=== PATIENT | female | born 1940 | race Caucasian/White ===

== ENCOUNTER 2023-09-24 13:12 | Outpatient (AMB) | payer MEDICARE, SELFPAY ==
--- NOTE | 2023-09-24 13:25 | MHC.OFFVIS ---
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 Required: No Allergies levofloxacin Allergy (Intermediate, Verified 09/24/23 13:42) Joint Pain Penicillins Allergy (Mild, Verified 09/24/23 13:42) Headache Medication List - Last Reconciled 09/24/23 by Jonna Bobby MD acetaminophen-caffeine 500-65 mg (Excedrin Tension Headache) 1 tab PO Q6H PRN aspirin 81 mg PO DAILY bupropion HCl 75 mg PO DAILY calcium carbonate-vitamin D3 600 mg-12.5 mcg (500 unit) (Calcium 600 with Vitamin D3) caps PO carbidopa-levodopa 25-100 mg 1 tab PO QID clonazepam 0.5 mg PO DAILY denosumab (Prolia) 60 mg subcut [id number] duloxetine (Cymbalta) 30 mg PO DAILY magnesium gluconate 54 mg PO DAILY magnesium oxide 400 mg PO DAILY mvi, adult no.1, vit K, 1 of 2 (M.V.I. Adult (Vial 1)) mL IV polyethylene glycol 3350 (Miralax) 17 grams PO DAILY vitamins A,C,X-mvsj-dcboje 2,148 mcg-113 mg-45 mg-17.4mg (PreserVision AREDS) 2 tabs PO BID HPI HPI Comments History of Present Illness Details 82y/o female comes for further management of Parkinsonism vs parkinsons disease. SHe was diagnosed with parkinsons about 1 ago when she was in [place].she was referred to the neurologist by her psychiatrist .she is not sure of her symptoms.she denies tremors but feels some slowing of movements and had gait issues. she had the AMADOU scan and was started on carbidopa/levodopa . when she moved here about 1 year ago - she saw who did not think she had parkinsons and her medicines were stopped. she did not notice any worsening.she was admitted at [facility] about 1 week ago and she was restarted on sinemet and she is not sure why. she denies tremors. Her balance is poor. Her speech is ok sometimes she feels her words dont come out right No memory issues. No REM behavior disorder she has constipation worse since sinemet. she has mild double vision and blurred vision.she has multiple falls even with a walker- she is mostly in wheel chair SHe has difficulty using fork and knife she has depression and anxiety life long. No exposure to antipsychotics. she was diagnosed with NPH few years ago and was evaluated for shunt by LP but her gait did not improve so she did not have a shunt. she has urinary urgency [facility] Medical History (Updated 09/24/23 @ 14:53 by Jonna Bobby MD) Gait disturbance Parkinson's disease without dyskinesia or fluctuating manifestations NPH (normal pressure hydrocephalus) Neuropathy TIA (transient ischemic attack) GERD (gastroesophageal reflux disease) Arthritis Anxiety Depression History of breast implant removal Surgical History History of appendectomy Hx of tonsillectomy Hx of spinal fusion History of back surgery Family History Mother No problems noted. Father No problems noted. Social History Household Members: None Housing: Assisted Living Facility Alcohol intake: former Tobacco use type: Cigarette Cigarette Packs Per Day: 2 Years Smoked: 10 year quit in 1982 Physical Exam Vital Signs: Last Vital Signs Pulse 68 09/24/23 13:34 Resp 16 09/24/23 13:34 BP 128/82 09/24/23 13:34 Pulse Ox 97 09/24/23 13:34 Oxygen Delivery Method Room Air 09/24/23 13:34 Const General: cooperative, healthy appearing, comfortable and no acute distress Nutritional Appearance: average body habitus Orientation/consciousness: patient oriented x3 Eyes Pupils: Equal, round and reactive pupils present Neuro Other: unable to walk - she declined to walk - feels unstable No tremors Mild bradykinesia L>R FFM and foot taps decreased L>R manda end gaze horizontal nystagmus General: patient oriented x3, tone normal, moves all extremities, no focal motor deficits and Unable to assess gait Cranial nerves: Yes Facial sensation intact/muscles of mastication intact, Yes Equal, round and reactive pupils present, Yes Bilaterally intact EOM present, Yes Normal facial strength present, Yes Midline tongue present, Yes Symmetric palate elevation present and Yes Ability to bilaterally elevate shoulders present Cognition (Neuro): normal cognition Gait exam (Neuro): Unable to assess gait Motor exam (neuro): 5/5 motor strength present throughout and Normal motor muscle tone present throughout Deep tendon reflexes (DTR's): Right triceps reflex intensity grade: 1+, Left triceps reflex intensity grade: 1+, Rt Biceps (C5, C6): 1+, Left biceps reflex intensity grade: 1+, Right brachioradialis reflex intensity grade: 1+, Left brachioradialis reflex intensity grade: 1+, Right patellar reflex intensity grade: 3+ and Left patellar reflex intensity grade: 3+ Coordination: atopkz-me-[id number] test normal Assessment & Plan Assessment & Plan (1) Parkinson's disease without dyskinesia or fluctuating manifestations: Code(s): G20.A1 - Parkinson's disease without dyskinesia, without mention of fluctuations (2) Gait disturbance: Comment: spinal stenosis ? NPH Code(s): R26.9 - Unspecified abnormalities of gait and mobility Plan Continue carbidopa/levodopa qid Reports form [place] for review I will evaluate her with MRI brain Orders: Orders MR head/brain wo con Today R26.9 - Unspecified abnormalities of gait and mobility Coding Level of Care Code New Pt Level 4 (14290) Diagnoses Parkinson's disease without dyskinesia or fluctuating manifestations G20.A1 Gait disturbance R26.9
[2023-09-24 13:34] VITALS: BP 128/82; PULSE 68; RESP 16; O2SAT 97
== END 2023-09-24 14:22 | disposition home or self-care (01) ==
PROVIDERS: PCP Physician Assistant; Visit Provider Psychiatry & Neurology Neurology
DX: G20.A1 Parkinson's disease without dyskinesia, without mention of fluctuations (principal); R26.9 Unspecified abnormalities of gait and mobility
CPT/HCPCS: 99204

== ENCOUNTER → 2023-09-24 13:12 | Outpatient (BNVA) | payer MEDICARE, SELFPAY | PROVIDERS: PCP Physician Assistant; Visit Provider Psychiatry & Neurology Neurology | DX: G20.A1 Parkinson's disease without dyskinesia, without mention of fluctuations (principal); R26.9 Unspecified abnormalities of gait and mobility; Z79.899 Other long term (current) drug therapy | CPT/HCPCS: 99202 ==

== ENCOUNTER 2023-10-30 10:28 | Outpatient (REF) | payer MEDICARE, SELFPAY | END 2023-10-30 10:29 | disposition home or self-care (01) | LOC: HO.MRI 10:28 | PROVIDERS: Visit Provider Psychiatry & Neurology Neurology | DX: Z13.89 Encounter for screening for other disorder (principal) ==

== ENCOUNTER 2023-12-03 10:03 | Outpatient (REF) | payer MEDICARE, SELFPAY ==
--- NOTE | ~2023-12-03 | MR_ITS ---
EXAMINATION: MR BRAIN WITHOUT CONTRAST CLINICAL INFORMATION: 83-year-old with self-reported full body weakness and extremity numbness, gait disorder. COMPARISON: None available. TECHNIQUE: MRI of the brain was obtained using routine sequences without contrast. FINDINGS: Brain Volume: There is prjitqxm-ck-gjadfk generalized diffuse supratentorial brain parenchymal volume loss. There is moderate volume loss involving the midbrain and mild cerebellar volume loss. Structural: No malformations. Brain and Meninges: DWI sequence demonstrates no restricted diffusion to suggest acute or subacute cerebral ischemia. There are patchy and confluent regions of FLAIR/T2 signal hyperintensity within the deeper and periventricular white matter of both cerebral hemispheres likely reflecting chronic ischemic microangiopathy in a patient of this age. Patchy zones of FLAIR/T2 signal hyperintensity are seen within the lisbeth on both sides of the midline consistent with chronic ischemic microangiopathy. Gradient refocused imaging demonstrates no abnormal susceptibility-weighted signal loss to suggest hemorrhage, hemosiderin staining or abnormal mineralization. No extra-axial fluid collections, space-occupying process or mass effect are identified. Ventricles and Subarachnoid Spaces: There is third and lateral ventriculomegaly, likely reflecting volume loss. Correlate clinically to exclude NPH. Orbital Structures: The visualized orbital structures are grossly unremarkable within the limitations of the study. Vascular: Signal voids are noted in the visualized major intracranial vessels. Osseous Structures, Sinuses/Mastoids, Extracranial Soft Tissues: Bone marrow signal intensity appears grossly within normal limits. There is cervical spondylosis at C4-C5 and C3-C4 with mild degrees of anterior subluxation of C2-C3 and C4-C5 with disc osteophyte complex indenting the ventral aspect of the spinal cord at C4-C5. There are degenerative changes at the anterior atlantodental joint with mild degenerative retrodental ligamentous thickening. There is minor mucosal thickening in the ethmoid complex and left maxillary sinus. MR/MR head/brain wo con IMPRESSION: 1. Findings consistent with chronic ischemic microangiopathy in the white matter of both cerebral hemispheres and within the lisbeth with no evidence for acute or subacute cerebral ischemia, hemorrhage, extra-axial fluid collection, space-occupying process or mass effect. 2. Third and lateral ventriculomegaly likely reflecting volume loss. Correlate clinically to exclude NPH. 3. Upper cervical degenerative changes with disc osteophyte complex indenting the ventral aspect of the spinal cord at C4-C5.
== END 2023-12-03 10:04 | disposition home or self-care (01) ==
LOC: HO.MRI 10:03
PROVIDERS: Visit Provider Psychiatry & Neurology Neurology
DX: R26.9 Unspecified abnormalities of gait and mobility (principal)
CPT/HCPCS: 70551

== ENCOUNTER 2023-12-31 11:07 | Outpatient (AMB) | payer MEDICARE, SELFPAY ==
--- NOTE | 2023-12-31 11:08 | A.OFFVIS_ITS ---
Vital Signs 12/31/23 11:09 Height 4 ft 9.5 in Weight 105 lb BMI 22.3 BP 138/82 Blood Pressure Location Lt brachial Position Sitting Respiration 16 Pulse 73 Pulse Source Pulse Oximeter Pulse Oximetry (%) 96 Oxygen Delivery Method Room Air Intake Visit Reasons: 3m follow up - Confirmed Intake Note: Pt presents to the office for a 3 month follow up for gait disturbance. Shoeshiner Required: No Allergies levofloxacin Allergy (Intermediate, Verified 12/31/23 11:14) Joint Pain Penicillins Allergy (Mild, Verified 12/31/23 11:14) Headache Medication List - Last Reconciled 12/31/23 by Jonna Bobby MD acetaminophen-caffeine 500-65 mg (Excedrin Tension Headache) 1 tab PO Q6H PRN aspirin 81 mg PO DAILY bupropion HCl 75 mg PO DAILY calcium carbonate-vitamin D3 600 mg-12.5 mcg (500 unit) (Calcium 600 with Vitamin D3) caps PO carbidopa-levodopa 25-100 mg 1 tab PO QID clonazepam 0.5 mg PO DAILY denosumab (Prolia) 60 mg subcut [id number] duloxetine (Cymbalta) 30 mg PO DAILY magnesium gluconate 54 mg PO DAILY magnesium oxide 400 mg PO DAILY mvi, adult no.1, vit K, 1 of 2 (M.V.I. Adult (Vial 1)) mL IV polyethylene glycol 3350 (Miralax) 17 grams PO DAILY vitamins A,C,E-rcko-rwuegh 2,148 mcg-113 mg-45 mg-17.4mg (PreserVision AREDS) 2 tabs PO BID HPI Comments Details: 82y/o female comes for follow up of Parkinsonism vs parkinsons disease. CT brain - . Third and lateral ventriculomegaly likely reflecting volume loss. Correlate clinically to exclude NPH. 3. Upper cervical degenerative changes with disc osteophyte complex indenting the ventral aspect of the spinal cord at C4-C5. Previous history-SHe was diagnosed with parkinsons about 1 ago when she was in [place].she was referred to the neurologist by her psychiatrist .she is not sure of her symptoms.she denies tremors but feels some slowing of movements and had gait issues. she had the AMADOU scan and was started on carbidopa/levodopa . when she moved here about 1 year ago - she saw who did not think she had parkinsons and her medicines were stopped. she did not notice any worsening.she was admitted at [facility] about 1 week ago and she was restarted on sinemet and she is not sure why. she denies tremors. Her balance is poor. Her speech is ok sometimes she feels her words dont come out right No memory issues. No REM behavior disorder she has constipation worse since sinemet. she has mild double vision and blurred vision.she has multiple falls even with a walker- she is mostly in wheel chair SHe has difficulty using fork and knife she has depression and anxiety life long. No exposure to antipsychotics. she was diagnosed with NPH few years ago and was evaluated for shunt by LP but her gait did not improve so she did not have a shunt. she has urinary urgency [facility] Medical History (Updated 12/31/23 @ 11:39 by Jonna Bobby MD) Gait disturbance Parkinson's disease without dyskinesia or fluctuating manifestations NPH (normal pressure hydrocephalus) Neuropathy TIA (transient ischemic attack) GERD (gastroesophageal reflux disease) Arthritis Anxiety Depression History of breast implant removal Surgical History History of appendectomy Hx of tonsillectomy Hx of spinal fusion History of back surgery Family History Mother No problems noted. Father No problems noted. Social History Household Members: None Housing: Assisted Living Facility Alcohol intake: former Tobacco use type: Cigarette Cigarette Packs Per Day: 2 Years Smoked: 10 year quit in 1982 Physical Exam Vital Signs: Last Vital Signs Pulse 73 12/31/23 11:09 Resp 16 12/31/23 11:09 BP 138/82 12/31/23 11:09 Pulse Ox 96 12/31/23 11:09 Oxygen Delivery Method Room Air 12/31/23 11:09 BMI result Body Mass Index 22.3 Const General: cooperative, healthy appearing, comfortable and no acute distress Nutritional Appearance: average body habitus Orientation/consciousness: patient oriented x3 Eyes Pupils: Equal, round and reactive pupils present Neuro Other: unable to walk - she declined to walk - feels unstable No tremors Mild bradykinesia L>R FFM and foot taps decreased L>R Mild decreased upgaze Normal speech General: patient oriented x3, tone normal, moves all extremities, no focal motor deficits and Unable to assess gait Cranial nerves: Yes Facial sensation intact/muscles of mastication intact, Yes Equal, round and reactive pupils present, Yes Bilaterally intact EOM present, Yes Normal facial strength present, Yes Midline tongue present, Yes Symmetric palate elevation present and Yes Ability to bilaterally elevate shoulders present Cognition (Neuro): normal cognition Gait exam (Neuro): Unable to assess gait Motor exam (neuro): 5/5 motor strength present throughout and Normal motor muscle tone present throughout Deep tendon reflexes (DTR's): Right triceps reflex intensity grade: 1+, Left triceps reflex intensity grade: 1+, Rt Biceps (C5, C6): 1+, Left biceps reflex intensity grade: 1+, Right brachioradialis reflex intensity grade: 1+, Left brachioradialis reflex intensity grade: 1+, Right patellar reflex intensity grade: 3+ and Left patellar reflex intensity grade: 3+ Coordination: [id number]-ic-[id number] test normal Results Reviewed Results Reviewed: Ct brain -Findings consistent with chronic ischemic microangiopathy in the white matter of both cerebral hemispheres and within the lisbeth with no evidence for acute or subacute cerebral ischemia, hemorrhage, extra-axial fluid collection, space-occupying process or mass effect. 2. Third and lateral ventriculomegaly likely reflecting volume loss. Correlate clinically to exclude NPH. 3. Upper cervical degenerative changes with disc osteophyte complex indenting the ventral aspect of the spinal cord at C4-C5. Assessment & Plan Assessment & Plan (1) Gait disturbance: Comment: spinal stenosis ? Parkinsonism Code(s): R26.9 - Unspecified abnormalities of gait and mobility Category: Medical (2) Parkinson's disease without dyskinesia or fluctuating manifestations: Code(s): G20.A1 - Parkinson's disease without dyskinesia, without mention of fluctuations Category: Medical (3) Neuropathy: Code(s): G62.9 - Polyneuropathy, unspecified Category: Medical Plan Continue carbidopa/levodopa 25/100 qid MRI C spine to evaluate for spinal stenosis Reviewed MRI brain results Orders: Orders MR cervical spine wo con Today M48.02 - Spinal stenosis, cervical region Coding Level of Care Code Est Pt Level 4 (58847) Diagnoses Gait disturbance R26.9 Parkinson's disease without dyskinesia or fluctuating manifestations G20.A1 Neuropathy G62.9
[2023-12-31 11:09] VITALS: BP 138/82; PULSE 73; RESP 16; O2SAT 96; BMI 22.3
== END 2023-12-31 11:51 | disposition home or self-care (01) ==
PROVIDERS: PCP Physician Assistant; Visit Provider Psychiatry & Neurology Neurology
DX: R26.9 Unspecified abnormalities of gait and mobility (principal); G20.A1 Parkinson's disease without dyskinesia, without mention of fluctuations; G62.9 Polyneuropathy, unspecified
CPT/HCPCS: 99214

== ENCOUNTER → 2023-12-31 11:07 | Outpatient (BNVA) | payer MEDICARE, SELFPAY | PROVIDERS: PCP Physician Assistant; Visit Provider Psychiatry & Neurology Neurology | DX: G20.A1 Parkinson's disease without dyskinesia, without mention of fluctuations (principal); R26.9 Unspecified abnormalities of gait and mobility; G62.9 Polyneuropathy, unspecified | CPT/HCPCS: 99212 ==

== ENCOUNTER 2024-02-09 12:34 | Outpatient (REF) | payer MEDICARE, SELFPAY ==
--- NOTE | ~2024-02-09 | MR_ITS ---
EXAMINATION: MR CERVICAL SPINE WITHOUT CONTRAST CLINICAL INFORMATION: Spinal stenosis, cervical region COMPARISON: None available. TECHNIQUE: MRI of the cervical spine was obtained using routine sequences without contrast. FINDINGS: The visualized posterior fossa is unremarkable. Reversal of the normal cervical lordosis. Grade 1 anterolisthesis at C2-C3, C3-C4, C4-C5, C7-T1, and T1-T2. No acute bone marrow abnormality. Probable atypical intraosseous hemangioma at C5 posteriorly. The vertebral body heights are preserved. Multilevel disc desiccation and disc height loss, worse and severe at C5-C6 and C6-C7. Mixed type I and II endplate changes predominantly at C5-C6 and C6-C7. The visualized spinal cord is normal in caliber. No abnormal cord signal. C2-C3: Disc osteophyte complex and bilateral facet arthrosis. Mild right neural foraminal narrowing. No significant spinal canal stenosis. C3-C4: Disc osteophyte complex and bilateral facet arthrosis. No significant spinal canal or neural foraminal narrowing. C4-C5: Disc osteophyte complex, left greater than right neural foraminal narrowing, ligamentum flavum hypertrophy, and bilateral facet arthrosis. Minimal spinal canal stenosis. Moderate left neural foraminal narrowing. C5-C6: Disc osteophyte complex and left greater than right uncovertebral hypertrophy. Severe left and mild right neural foraminal narrowing. No significant spinal canal stenosis. C6-C7: Disc osteophyte complex, bilateral uncovertebral hypertrophy, ligamentum flavum hypertrophy, and bilateral facet arthrosis. Mild to moderate bilateral neural foraminal narrowing. No significant spinal canal stenosis. C7-T1: Bilateral uncovertebral hypertrophy and facet arthrosis. No significant spinal canal stenosis. Mild right greater than left neural foraminal narrowing. The paravertebral soft tissues are unremarkable. The visualized lung apices are clear. MR/MR cervical spine wo con IMPRESSION: Multilevel cervical spondylosis without significant cord compression, or abnormal cord signal. There is minimal spinal canal stenosis at C4-C5. Neural foraminal narrowing is worst and severe on the left at C5-C6.
== END 2024-02-09 12:35 | disposition home or self-care (01) ==
LOC: HO.MRI 12:34
PROVIDERS: PCP Physician Assistant; Visit Provider Psychiatry & Neurology Neurology
DX: M48.02 Spinal stenosis, cervical region (principal)
CPT/HCPCS: 72141

== ENCOUNTER 2025-03-20 11:22 | Outpatient (AMB) | payer MEDICARE, SELFPAY ==
--- NOTE | 2025-03-20 11:27 | MHC.OFFVIS ---
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 she was started on PT recently. she is in an senior living facility. Her dose was increased to carbidopa/levodopa 25/100 1 1/2 tabs qid . she used to have frequent falls - she feels it decreased with increase in dose. she falls usually when she is transferring. she is not walking much she did PT but did not help. she lost her sister 3mths ago and has been depressed since then.she is on duloxetine 60mg CT brain - . Third and lateral ventriculomegaly likely reflecting volume loss. Correlate clinically to exclude NPH. 3. Upper cervical degenerative changes with disc osteophyte complex indenting the ventral aspect of the spinal cord at C4-C5. Previous history-SHe was diagnosed with parkinsons about 1 ago when she was in [place].she was referred to the neurologist by her psychiatrist .she is not sure of her symptoms.she denies tremors but feels some slowing of movements and had gait issues. she had the AMADOU scan and was started on carbidopa/levodopa . when she moved here about 1 year ago - she saw who did not think she had parkinsons and her medicines were stopped. she did not notice any worsening.she was admitted at [facility] about 1 week ago and she was restarted on sinemet and she is not sure why. she denies tremors. Her balance is poor. Her speech is ok sometimes she feels her words dont come out right No memory issues. No REM behavior disorder she has constipation worse since sinemet. she has mild double vision and blurred vision.she has multiple falls even with a walker- she is mostly in wheel chair SHe has difficulty using fork and knife she has depression and anxiety life long. No exposure to antipsychotics. she was diagnosed with NPH few years ago and was evaluated for shunt by LP but her gait did not improve so she did not have a shunt. she has urinary urgency [facility] Medical History Gait disturbance Parkinson's disease without dyskinesia or fluctuating manifestations NPH (normal pressure hydrocephalus) Neuropathy TIA (transient ischemic attack) GERD (gastroesophageal reflux disease) Arthritis Anxiety Depression Surgical History History of breast implant removal History of appendectomy Hx of tonsillectomy Hx of spinal fusion History of back surgery Family History Mother No problems noted. Father No problems noted. Social History Household Members: None Housing: Assisted Living Facility Alcohol intake: former Tobacco use type: Cigarette Cigarette Packs Per Day: 2 Years Smoked: 10 year quit in 1982 Physical Exam Vital Signs: Last Vital Signs Pulse 78 03/20/25 11:37 BP 100/72 03/20/25 11:37 Pulse Ox 99 03/20/25 11:37 Oxygen Delivery Method Room Air 03/20/25 11:37 Const General: cooperative, healthy appearing, comfortable and no acute distress Nutritional Appearance: average body habitus Orientation/consciousness: patient oriented x3 Eyes Pupils: Equal, round and reactive pupils present Neuro Other: unable to walk - she declined to walk - feels unstable No tremors Mild bradykinesia L>R FFM and foot taps decreased L>R Mild decreased upgaze Normal speech General: patient oriented x3, tone normal, moves all extremities, no focal motor deficits and Unable to assess gait Cranial nerves: Yes Facial sensation intact/muscles of mastication intact, Yes Equal, round and reactive pupils present, Yes Bilaterally intact EOM present, Yes Normal facial strength present, Yes Midline tongue present, Yes Symmetric palate elevation present and Yes Ability to bilaterally elevate shoulders present Cognition (Neuro): normal cognition Gait exam (Neuro): Unable to assess gait Motor exam (neuro): 5/5 motor strength present throughout and Normal motor muscle tone present throughout Coordination: [id number] test normal Assessment & Plan Assessment & Plan (1) Gait disturbance: Comment: Parkinsonism Code(s): R26.9 - Unspecified abnormalities of gait and mobility Category: Medical (2) Parkinson's disease without dyskinesia or fluctuating manifestations: Comment: ? PSP Code(s): G20.A1 - Parkinson's disease without dyskinesia, without mention of fluctuations Category: Medical (3) Neuropathy: Code(s): G62.9 - Polyneuropathy, unspecified Category: Medical Plan continue carbidopa/levodopa 25/100 - 1 1/2 tabs qid Continue exercise she may benefit from counseling for her mood. Coding Level of Care Code Est Pt Level 4 (84397) Complex EM visit Add On G2211 Diagnoses Gait disturbance R26.9 Parkinson's disease without dyskinesia or fluctuating manifestations G20.A1 Neuropathy G62.9
[2025-03-20 11:37] VITALS: BP 100/72; PULSE 78; O2SAT 99
--- OUTSIDE RECORDS SUMMARY | 2025-03-20 12:38 | XMS_ITS | Clinical Summary ---
Author Organization [address] [facility] Address [address] [place] [address] Phone Care Team Providers Care Applications Systems Analyst Name Role Phone Ron Morris MD Primary Care Provider [phone] Encounters Date Type Department Care Team Description 01/31/2025 Lab Requisition [facility] [address] [place] [address] Ron Morris MD Weakness 01/30/2025 Lab Requisition [facility] [address] [place] [address] Ron Morris MD Chronic fatigue, unspecified; Other specified cough from Last 3 Months Social History Tobacco Use Types Packs/Day Years Used Date Smoking Tobacco: Never Assessed Comments Unknown Sex and Gender Information Value Date Recorded Sex Assigned at Not on file Legal Sex Female 8:41 PM EST Gender Identity Not on file Sexual Orientation Not on file Plan of Treatment Health Maintenance Due Date Last Done Comments DTaP,Tdap,and Td Vaccines (1 - Tdap) 1961 Pneumococcal Vaccine: 50+ Ye ars (1 of 1 - PCV) 1992 Zoster Vaccines (1 of 2) 1992 RSV Immunization Adult Patie nts (1 - 1-dose 75+ series) 2017 Falls Risk Assessment 09/18/2023 Medicare Annual Wellness Visit 09/18/2023 Osteoporosis Screening (Bone Density Screening) 09/18/2023 Social Influencers of Health Screening 09/18/2023 COVID-19 Vaccine ( - 2023-2 5 season) 2024 Depression Screening 08/24/2024 Influenza Vaccine (#1) 2025 HIB Vaccines Aged Out No longer eligi ble based on patient's age to complete this topic HPV Vaccines Aged Out No longer eligi ble based on patient's age to complete this topic Hepatitis A Vaccines Aged Out No long er eligible based on patient's age to complete this topic Hepatitis B Vaccines Aged Out No long er eligible based on patient's age to complete this topic IPV Vaccines Aged Out No longer eligi ble based on patient's age to complete this topic MMR Vaccines Aged Out No longer eligi ble based on patient's age to complete this topic Meningococcal ACWY Vaccine Aged Out N o longer eligible based on patient's age to complete this topic Meningococcal B Vaccine Aged Out No l onger eligible based on patient's age to complete this topic RSV Immunization Patients Un genesis 20 months Aged Out No longer eligible b ased on patient's age to complete this topic Varicella Vaccines Aged Out No longer eligible based on patient's age to complete this topic Procedures Procedure Name Priority Date/Time Associated Diagnosis Comments BASIC METABOLIC PANEL Routine 01/31/2025 8:23 AM EDT Weakness COMPLETE BLOOD COUNT Routine 01/31/2025 8:23 AM EDT Weakness [id number], RSV, FLU A AND B QUALITATIVE RT-PCR, LOCAL REFERENCE LAB Routine 01/30/2025 1:50 PM EDT Chronic fatigue, unspecified Other specified cough from Last 3 Months Results * (ABNORMAL) Complete blood count (01/31/2025 8:23 AM EDT) WBC 8.2 4.8 - 10.8 K/mcL LAB HEMETOLOGY METHOD 01/31/2025 11:47 AM EDT [facility] RBC 4.00 3.80 - 4.80 M/mcL LAB HEMETOLOGY METHOD 01/31/2025 11:47 AM EDT [facility] Hemoglobin 12.5 11.5 - 16.0 g/dL LAB HEMETOLOGY METHOD 01/31/2025 11:47 AM EDT [facility] Hematocrit 40.0 35.0 - 47.0 % LAB HEMETOLOGY METHOD 01/31/2025 11:47 AM EDT [facility] MCV 99.5(H) 79.0 - 98.0 FL LAB HEMETOLOGY METHOD 01/31/2025 11:47 AM EDT [facility] MCH 31.1 27.0 - 32.0 pcg LAB HEMETOLOGY METHOD 01/31/2025 11:47 AM EDT [facility] MCHC 31.3(L) 32.0 - 37.0 g/dL LAB HEMETOLOGY METHOD 01/31/2025 11:47 AM EDT [facility] RDW 13.2 11.0 - 15.0 % LAB HEMETOLOGY METHOD 01/31/2025 11:47 AM EDT [facility] Platelets 377 130 - 400 K/mcL LAB HEMETOLOGY METHOD 01/31/2025 11:47 AM EDT [facility] MPV 8.7 7.0 - 11.0 FL LAB HEMETOLOGY METHOD 01/31/2025 11:47 AM EDT [facility] NRBC 0.0 <1.0 % LAB HEMETOLOGY METHOD 01/31/2025 11:47 AM EDT [facility] NRBC Absolute 0.00 <0.10 K/mcL LAB HEMETOLOGY METHOD 01/31/2025 11:47 AM T [facility] Blood Venous blood specimen / Unknown Venipuncture / Unknown 01/31/2025 8:23 AM EDT 01/31/2025 10:38 AM EDT us Ron Morris MD LAB BLOOD ORDERABLES Final Resul t [facility] [address] [place] [address], * (ABNORMAL) Basic metabolic panel (01/31/2025 8:23 AM EDT) Pathologist [facility] Sodium 141 133 - 145 mmol/L LAB CHEMISTRY METHOD 01/31/2025 12:03 PM [facility] Potassium 4.4 3.5 - 5.5 mmol/L LAB CHEMISTRY METHOD 01/31/2025 12:03 PM [facility] Chloride 106 96 - 110 mmol/L LAB CHEMISTRY METHOD 01/31/2025 12:03 PM [facility] CO2 29 21 - 32 mmol/L LAB CHEMISTRY METHOD 01/31/2025 12:03 PM [facility] Anion Gap 6 3 - 11 LAB CHEMISTRY METHOD 01/31/2025 12:03 PM [facility] Glucose 74 70 - 100 mg/dL LAB CHEMISTRY METHOD 01/31/2025 12:03 PM [facility] BUN 10 5 - 25 mg/dL LAB CHEMISTRY METHOD 01/31/2025 12:03 PM [facility] Creatinine 0.69 0.50 - 1.10 mg/dL LAB CHEMISTRY METHOD 01/31/2025 12:03 PM [facility] eGFR 87 >=60 mL/min/1. 73m2 LAB CHEMISTRY METHOD 01/31/2025 12:03 PM [facility] Comment:Calculation based on the Chronic Kidney Disease Epidemiology Collaboration (CKD-EPI) equation refit without adjustment for race. BUN/Creatinine Ratio 14.5 LAB CHEMISTRY METHOD 01/31/2025 12:03 PM [facility] Calcium 8.0(L) 8.5 - 10.5 mg/dL LAB CHEMISTRY METHOD 01/31/2025 12:03 PM [facility] Blood Venous blood specimen / Unknown Venipuncture / Unknown 01/31/2025 8:23 AM EDT 01/31/2025 10:38 AM EDT us Ron Morris MD LAB BLOOD ORDERABLES Final Resul t [facility] [address] [place] [address], * [id number], RSV, Influenza A and B qualitative RT-PCR (01/30/2025 1:50 PM EDT) SARS COV-2 Not Detected Not Detected LAB MOLECULAR DIAGNOSTICS METHOD 01/31/2025 7:55 AM EDT [facility] Comment: Disclaimer: The manner in which this information is used to guide patient care is the responsibility of the healthcare provider. Testing was performed using the [employer] Alinity m SARS-CoV-2 test. This test has been authorized by FDA under an Emergency Use Authorization (EUA). This test is only authorized for the duration of time the declaration that circumstances exist justifying the authorization of the emergency use of in vitro diagnostic tests for detection of SARS-CoV-2 virus and/or diagnosis of COVID-19 infection under section 564(b)(1) of the Act, 21 U.S.C. 360bbb- 3(b)(1), unless the authorization is terminated or revoked sooner. Fact sheet for Healthcare Providers can be found at: https://www.fda.gov/media/240320/download Fact sheet for Patients can be found at: https://www.fda.gov/media/369667/download Influenza A PCR Not Detected Not Detected LAB MOLECULAR DIAGNOSTICS METHOD 01/31/2025 7:55 AM EDT [facility] Influenza B PCR Not Detected Not Detected LAB MOLECULAR DIAGNOSTICS METHOD 01/31/2025 7:55 AM EDT [facility] RSV PCR Not Detected Not Detected LAB MOLECULAR DIAGNOSTICS METHOD 01/31/2025 7:55 AM EDT [facility] Swab Nasopharyngeal structure / Unknown 01/30/2025 1:50 PM EDT 01/30/2025 4:11 PM EDT Ron Morris MD LAB MICROBIOLOGY - GENERAL ORDER ROSY Final Result [facility] [address] [facility] [place] [address], [place] [phone] from Last 3 Months Insurance [facility] MEDICARE Care Teams Applications Systems Analyst Relationship Specialty Start Date End Date Ron Morris MD [address] [place] [address], [id number] PCP - General Family Medicine 11/11/24
--- OUTSIDE RECORDS SUMMARY | 2025-03-20 12:39 | XMS_ITS ---
Author Name [facility] Organization Unknown History of Medication Use Medication Directions Dispensed Refills Start Date End Date Stat us DULoxetine (CYMBALTA) 20 MG delayed release capsule 20 mg daily. 11/24/2021 active ibuprofen (MOTRIN) 400 mg tablet Take 1.5 tablets by mouth every 6 hours as needed for Pain. 10/08/2020 active clonazePAM (KLONOPIN) 0.5 MG tablet Take 0.25 mg by mouth 2 times daily. 11/19/2015 active Advair Diskus 500 mcg-50 mcg/dose powder for inhalation Advair Diskus 500 mcg-50 mcg/dose powder for inhalation 2 completed albuterol sulfate 2.5 mg/3 mL (0.083 %) solution for nebulization USE 1 TREATMENT (VIAL) EVERY 4-6 HOURS- AT LEAST 4 TREATMENTS A DAY USE 1 TREATMENT (VIAL) EVERY 4-6 HOURS- AT LEAST 4 TREATMENTS A DAY 2 completed aripiprazole 1 mg/mL oral solution TAKE 2ML BY MOUTH EVERY DAY TAKE 2ML BY MOUTH EVERY DAY 2 completed lansoprazole 30 mg capsule,delayed release TAKE 1 CAPSULE BY MOUTH EVERY DAY TAKE 1 CAPSULE BY MOUTH EVERY DAY 2 completed Lotemax 0.5 % eye ointment APPLY SMALL AMOUNT TO AFFECTED EYE 1-2 TIMES PER DAY FOR ITCHING APPLY SMALL AMOUNT TO AFFECTED EYE 1-2 TIMES PER DAY FOR ITCHING 2 completed mirtazapine 7.5 mg tablet mirtazapine 7.5 mg tablet 2 completed neomycin 3.5 mg/g-polymyxin B 10,000 unit/g-dexameth 0.1 % eye oint APPLY TO RIGHT UPPER EYELID FOUR TIMES DAILY FOR 7 DAYS THEN ONCE DAILY FOR 7 DAYS THEN STOP APPLY TO RIGHT UPPER EYELID FOUR TIMES DAILY FOR 7 DAYS THEN ONCE DAILY FOR 7 DAYS THEN STOP [address] [facility] with Large Mask USE DIRECTED USE DIRECTED 2 completed mirtazapine 30 mg tablet mirtazapine 30 mg tablet 0 completed Advair Diskus 100 mcg-50 mcg/dose powder for inhalation INHALE 1 PUFF BY MOUTH TWICE DAILY INHALE 1 PUFF BY MOUTH TWICE DAILY completed Calcium Carbonate-Vit D-Min (CALCIUM 1200 PO) Take 2,400 mg by mouth daily. active Cholecalciferol (VITAMIN D) 25 MCG (1000 UT) TABS Take 1,000 Units by mouth daily. active clonazepam 0.5 mg tablet TAKE 1/2 TABLET BY MOUTH TWICE DAILY NEEDED FOR ANXIETY TAKE DIRECTED NEEDED FOR ANXIETY TAKE 1/2 TABLET BY MOUTH TWICE DAILY NEEDED FOR ANXIETY TAKE DIRECTED NEEDED FOR ANXIETY completed duloxetine 20 mg capsule,delayed release TAKE 1 CAPSULE BY MOUTH EVERY NIGHT TAKE 1 CAPSULE EVERY MORNING TAKE 1 CAPSULE BY MOUTH EVERY NIGHT TAKE 1 CAPSULE EVERY MORNING completed Multiple Vitamin (MULTIVITAMIN ADULT PO) Take 1 tablet by mouth daily. active polyethylene glycol (MIRALAX) 17 g packet Take 17 g by mouth daily. active Allergies Allergen Reaction Severity Comment Documented Date Source Statu s NUTS 07/28/2022 [facility] active CASHEWS ANAPHYLAXIS Severe 10/03/2020 [facility] active SCALLOPS NAUSEA AND VOMITING Severe 05/18/2019 [facility] I active LEVOFLOXACIN Severe pain 07/06/2017 [facility] active PENICILLINS RASH Moderate 01/24/2016 [facility] active LEVAQUIN E[facility] Problems Problem Status Onset Date Problem Type Date of Resolution Source Osteoporosis, post-menopausal active 2019-11-04 ProblemAct [facility] Parkinson's disease active 2022-04-24 ProblemAct [facility] PAD (peripheral artery disease) active 2020-01-23 ProblemAct [facility] Degenerative joint disease of both hips active 2019-08-24 ProblemAct [facility] Vitamin D deficiency, unspecified active 2019-11-04 ProblemAct [facility] Cluster C personality disorder active 2022-07-28 ProblemAct [facility] Cervical disc disorder at C4-C5 level with radiculopathy active 2022-07-28 ProblemAct [facility] Major depression, chronic active 2022-07-28 ProblemAct [facility] Moderate persistent asthma without complication active 2019-11-04 ProblemAct [facility] History of asthma active 2022-01-22 ProblemAct [facility] Chronic daily headache active 2022-07-28 ProblemAct [facility] Parkinsonism active 2022-07-28 ProblemAct [facility] Cervicalgia active 2016-01-24 ProblemAct [facility] Hypocalcemia active 2019-11-04 ProblemAct [facility] Dyslipidemia, goal LDL below 100 active 2022-07-28 ProblemAct [facility] Pulmonary nodules active EncounterDiagnosisAct [facility] Former smoker, stopped smoking many years ago active 1981-08-24 ProblemAct [facility] Carpal tunnel syndrome, bilateral active 2020-04-24 ProblemAct [facility] I Cerebral atrophy active 2018-03-19 ProblemAct U [facility] Abnormal brain MRI active 2022-07-28 ProblemAct [facility] Lung nodule, solitary active 2016-04-14 ProblemAct [facility] Adjustment disorder with depressed mood active 2022-07-28 ProblemAct [facility] I Immunizations Vaccine Date Source Lot Number Status influenza, injectable, quadrivalent 06/04/2021 E[facility]_PAPA completed Assessment and Plan ID Update Date Source Alert Text [facility]-[id number] 06/18/2022 [place] [employer] COVID Vaccination: This patient has received the PFR, COV-19,mRNA,LNP-S,PF,30-0.3,Biv alent vaccination on 06/18/2022 with lot number [id number] [id number] [place] [employer]-[id number] 08/05/2021 [place] [employer] COVID Vaccination: This patient has received the PFR, COVID-19, mRNA, LNP-S, PF, 0.3mL vaccination on 08/05/2021 with lot number [id number] at [facility] [place] [facility]. [place] [employer]-[id number] 11/25/2020 [place] [employer] COVID Vaccination: This patient has received the PFR, COVID-19, mRNA, LNP-S, PF, 0.3mL vaccination on 11/25/2020 with lot number [id number] at [facility] [address] [facility] [address] [place] [employer]-[id number] 10/28/2020 [place] [employer] COVID Vaccination: This patient has received the PFR, COVID-19, mRNA, LNP-S, PF, 0.3mL vaccination on 10/28/2020 with lot number [id number] at [facility] [id number] [address] Health Concerns ID Update Date Source Alert Text 10/24/2022 [facility] Care Alert Professionals Involved in Care: TOP COLLAR BASTER Primary Care Outpatient Case Management Team Patient Date last reviewed: 01/14/22 This Care Alert was last updated by a care seal delivery vehicle team technician on 01/14/2022, however the update date is reflective of a CRISP QA process on 10/23/2022. Encounters Encounter Type Encounter Reason Primary Diagnosis Location Date Ambulatory [facility] 10/03/2022 Ambulatory [facility] 09/30/2022 [facility]22 Ambulatory [phone] CALL CONFIRMED [facility] 09[facility]26/2022 [facility] 09/19/2022 Ambulatory [facility] 09/19/2022 Ambulatory [facility] 09[facility]18/2022 Ambulatory [facility] 09/12/2022 Ambulatory [facility] 09[facility]10/2022 Ambulatory [facility] 09[facility]09/2022 Ambulatory [facility] 09/05/2022 Ambulatory [facility] 09/05/2022 Ambulatory [phone] CALL [facility] 09/05/2022 Ambulatory [facility] 09/03/2022 Ambulatory [facility] 09/01/2022 Ambulatory [facility] 08/27/2022 Ambulatory Other nonspecifi c abnormal finding of lung field [facility] 08/26/2022 Ambulatory [facility] 08/15/2022 Ambulatory [facility] 08/07/2022 Ambulatory F[facility]U. [facility] 08/04/2022 [facility]ulatory [facility] 08/04/2022 Ambulatory [facility] 07/29/2022 Ambulatory [facility] 07/28/2022 Ambulatory [facility] 07/28/2022 Ambulatory [facility] 07/21/2022 Ambulatory [facility] 07/14/2022 Ambulatory [facility] 07/14/2022 Amb[facility] 07/14/2022 Ambulatory [facility] 07/04/2022 Ambulatory [facility]U. [facility] 07/04/2022 Ambulatory [facility] 06/26/2022 Ambulatory [facility] 06/17/2022 Ambulatory [facility] 05/30/2022 Ambulatory [facility] 05/29/2022 Ambulatory [facility] 05/28/2022 Ambulatory [facility] 05/23/2022 Ambulatory [facility] 05/21/2022 Ambulatory [facility] 05/13/2022 Ambulatory [facility] 05/08/2022 Ambulatory [facility] 05/06/2022 Ambulatory [facility] 05/05/2022 Ambulatory [phone] CALL [facility] 05/05/2022 Ambulatory [facility] 04/24/2022 Ambulatory [facility] 04/21/2022 Ambulatory [facility] 04/11/2022 Ambulatory [facility] 04/03/2022 Ambulatory [facility] 04/03/2022 Ambulatory [phone] CALL [facility] 03/24/2022 Ambulatory [facility] 03/24/2022 Ambulatory [phone] [facility]22 Ambulatory [facility] 03/18/2022 Ambulatory [facility] 03/14/2022 Ambulatory [facility] 03[facility]12/2022 Ambulatory [facility] 03/05/2022 Ambulatory [facility] 03/05/2022 Ambulatory CALL [phone] LINE BUSY [facility] 03/05/2022 Ambulatory [facility] 02/19/2022 Ambulatory [facility] 02/17/2022 Emergency Fall [facility] 02/13/2022 Ambulatory [facility] 02/13/2022 Ambulatory CALL [phone] CONFIR [facility] 01/30/2022 Ambulatory [facility] 01/29/2022 Ambulatory [facility] 01/21/2022 Ambulatory [facility] 01/08/2022 Ambulatory [facility] 01/06/2022 Ambulatory [facility] 01/06/2022 Ambulatory [facility] 01/03/2022 Ambulatory [facility] 12/23/2021 Ambulatory [facility] 12/23/2021 Ambulatory CALL [phone] CONFIRMED [facility] 12/23/2021 Ambulatory TRANSCRIBED [facility] 12/19/2021 Ambulatory [facility] 12/16/2021 Ambulatory [facility] 12/05/2021 Ambulatory [facility] 12/02/2021 Ambulatory [facility] 12/02/2021 Ambulatory [facility] 11/25/2021 Ambulatory CALL [phone] CONFIRMED [facility] 11/25/2021 Ambulatory F[facility]U. [facility] 11/18/2021 Ambulatory [facility] 11/18/2021 Ambulatory [facility] 10/30/2021 Ambulatory [facility] 09/27/2021 Ambulatory CALL [phone] CONFIRMED [facility] 09/27/2021 Ambulatory [facility] 09/25/2021 Ambulatory [facility] 09/18/2021 Ambulatory [facility] 09/17/2021 Ambulatory [facility] 08/28/2021 Ambulatory CALL [phone] CONFIRMED [facility] 08/28/2021 Ambulatory AUDIO [facility] 08/06/2021 Ambulatory [facility] 08/06/2021 Ambulatory [facility] 08/06/2021 Ambulatory [facility] 07/31/2021 Ambulatory [facility] 07/10/2021 Ambulatory [facility] 07/09/2021 Ambulatory CALL [phone] CONFIRMED [facility] 07/09/2021 Ambulatory [facility] 07/08/2021 Ambulatory [facility] 07/05/2021 Ambulatory [facility] 06/28/2021 Ambulatory [facility] 06/28/2021 Ambulatory [facility] 06/19/2021 Ambulatory [facility] 06/06/2021 Ambulatory [facility] 06/05/2021 Ambulatory [facility] 06/03/2021 Ambulatory CALL [phone] LVM [facility] 06/03/2021 Ambulatory [facility] 05/15/2021 Ambulatory [facility] 05/10/2021 Ambulatory [facility] 05/07/2021 Ambulatory Encounter for general adult medical examination without abnormal findings [facility] 05/06/2021 Ambulatory [facility] 05/01/2021 Ambulatory [facility] 04/24/2021 Ambulatory CALL [phone] [facility] 04/22/2021 Emergency medical services Shortness of breath - Respiratory No Apparent Illness/Injury [Unknown] [facility] 03/21/2020 Care Team Organization Name Specialty Phone Email Start Date End Da te [facility] Value Based Care 06/18/2023 5 [facility] 06/02/2023 04/11/20 2 4 Physical Therapy 05/22/2023 5 [facility] IVETH BOYD Primary Care 09/18/2022 4 [facility] IVETH BOYD Primary Care [email or web address] 09/18/2022 3 [facility] Ambulatory Practices Non [facility], Provider Primary Care 07/22/[address] [place] [address], Provider Primary Care 07/22/2022 4 [facility] Physician [facility] 07/14/2022 [facility] 06/26/2022 [facility] ANDREA MAGAÑA Primary Care 06/17/2022 4 [facility] ANDREA MAGAÑA Primary Care [email or web address] 04/03/2022 5 [facility] Primary Care [email or web address] 12/19/2021 2 [facility] ANDREA MAGAÑA Primary Care [email or web address] 12/02/2021 2 [facility] - [place] 06/05/2021 4 [facility] - [place] 06/05/2021 Family Medicine [facility] [phone] Primary Care 01/20/2020 2 Family Medicine [facility] ANDREA MAGAÑA Primary Care [email or web address] 01/20/2020 2 [facility] 01/19/2020 2 [facility] LONNIE [phone] Primary Care 11/23/2019 0 [facility] UNK UNK Primary Care 09/26/2019 2 [facility], [facility] 07/07/2019 07/03/20 2 0 [facility] IVETH BOYD Primary Care [email or web address] 04/29/2019 3 [facility] ANDREA MAGAÑA Primary Care 04/29/2019 2 [facility] ANDREA MAGAÑA Primary Care [email or web address] 04/29/2019 2 Darin Fleming MD 02/01/2019 4 [facility]: Yonny FLEMING Primary Care [email or web address] [email or web address] 12/20/2018 0 [facility]: Yonny MAGAÑA Primary Care [email or web address] 12/20/2018 0 [facility] 12/15/2018 1 [facility] IVETH BOYD Primary Care [email or web address] 11/22/2018 3 [facility] ANDREA MAAGÑA Primary Care 11/22/2018 1 [facility] ANDREA MAGAÑA Primary Care [email or web address] 11/22/2018 1
== END 2025-03-20 12:18 | disposition home or self-care (01) ==
LOC: HO.HSMS 11:23
PROVIDERS: PCP Physician Assistant; Visit Provider Psychiatry & Neurology Neurology
DX: R26.9 Unspecified abnormalities of gait and mobility (principal); G20.A1 Parkinson's disease without dyskinesia, without mention of fluctuations; G62.9 Polyneuropathy, unspecified
CPT/HCPCS: 99214; G2211

== ENCOUNTER → 2025-03-20 11:22 | Outpatient (BNVA) | payer MEDICARE, SELFPAY | PROVIDERS: PCP Physician Assistant; Visit Provider Psychiatry & Neurology Neurology | DX: G20.A1 Parkinson's disease without dyskinesia, without mention of fluctuations (principal); R26.9 Unspecified abnormalities of gait and mobility; G62.9 Polyneuropathy, unspecified; Z79.899 Other long term (current) drug therapy; Z91.81 History of falling | CPT/HCPCS: 99212 ==